=== PATIENT | female | born 1990 | race Caucasian/White ===

== ENCOUNTER → 2023-02-18 10:54 | Outpatient (CLI) | payer OTHER, BC, SELFPAY ==
--- NOTE | ~2023-02-18 | US_ITS ---
US axilla RT DATE: 02/18/2023 11:08 INDICATION: Localized lump in the axilla for several months. Patient is 4 months . Patient states the lesion is smaller since delivery with breast-feeding. No pain. No family history of breast cancer. TECHNIQUE: Real-time and color flow imaging of right axillary soft tissues COMPARISON: None FINDINGS: There is a parallel circumscribed approximately 5.8 x 18 x 20 mm relatively uniform hypoech oic right axillary lesion with through transmission and posterior enhancement, suggesting that this i s either hypoechoic solid mass or complicated cystic mass. A similar 2.7 x 5.9 x 6 mm low density homogeneous echogenic lesion with through transmission posteri or enhancement is noted contiguous to this lesion. No internal vascularity or posterior shadowing is noted in either of these lesions. These are likely benign. Short-term 3-6 month follow-up sonographic imaging is recommended. IMPRESSION: BI-RADS Category 3: Probably benign finding Recommendation: 3-6 month right axillary ultrasound follow-up Reviewed, dictated and finalized at [facility]. Reviewed, dictated and finalized at [facility]. [employer] [facility]
== END ==
PROVIDERS: PCP Obstetrics & Gynecology; Visit Provider Obstetrics & Gynecology
DX: R22.31 Localized swelling, mass and lump, right upper limb (principal)
CPT/HCPCS: 76882